=== PATIENT | male | born 1940 | race Caucasian/White ===

== ENCOUNTER → 2016-10-12 | Outpatient (CLI) | payer MEDICARE, BC ==
[~2016-10-12] MED LIST: ALBUTEROL200 PUFFS/ IH; ALDACTONE 25MG25 MG PO; AMIODARONE 200200 MG PO; ASPIRIN 81MG TA81 MG PO; CELEBREX 200MG200 MG PO; COREG25 MG PO; ELAVIL GENERIC25 MG PO; FOLIC ACID 1MG T1 MG PO; HYDROXYZINE50 MG PO; HYOSCYAMINE0.125 M1 PO; LEVAQUIN LEVA-750 MG PO; LEXAPRO 10 MG T10 MG PO; LISINOPRIL 5MG T5 MG PO; METHOTREXATE2.5 MG PO; PRAVASTATIN 40M40 MG PO; PREDNISONE20 MG PO; TAMIFLU 75MG CA75 MG PO; VICODIN 5/500 T1 TAB PO; ZINC SULFATE 2220 MG PO
[2016-10-12 15:07] LABS: HEMOGLOBIN 15.5 g/dL (14.1-18.0); LYMPH # 2.3 K/mm3 (0.7-4.5); LYMPH % 25.3 % (10-50)
--- NOTE | 2016-10-12 15:18 | RADIOLOGY REPORT PS360 ---
CHEST(2 VIEWS-NOT PORTABLE) HISTORY: TOBACCO USE ORDERING PHYSICIAN: Adarsh Chaparro MD PATIENT AGE: 76 years COMPARISON: 06/08/2016 FINDINGS: There has been a prior median sternotomy/CABG. The heart size is normal. AICD device is present in good position. Right hemidiaphragm is elevated with atelectatic or fibrotic changes in both lung bases right somewhat more prominent than left. Upper lobes are clear. There are mild degenerative change is in the thoracic spine. IMPRESSION: 1. No change with no acute finding. 2. Bilateral lower lobe atelectatic/fibrotic change in the 3. Prior CABG with AICD device present
[2016-10-12 16:33] LABS: ABO BLOOD TYPE O; RH BLOOD TYPE POSITIVE
[2016-10-12 16:51] LABS: BUN 16 mg/dL (7-18); URINE BILIRUBIN - DIPSTICK NEGATIVE (NEG); URINE BLOOD NEGATIVE (NEG)
[2016-10-12 16:59] LABS: GFR (ESTIMATED) 82 ML/MIN (>60)
== END ==
LOC: LAB 14:26
PROVIDERS: Family Medicine
DX: E11.9 Type 2 diabetes mellitus without complications (principal); Z01.810 Encounter for preprocedural cardiovascular examination; Z01.811 Encounter for preprocedural respiratory examination; Z01.812 Encounter for preprocedural laboratory examination; Z95.810 Presence of automatic (implantable) cardiac defibrillator; I50.9 Heart failure, unspecified

== ENCOUNTER → 2016-12-03 | Outpatient (CLI) | payer MEDICARE, BC | LOC: LAB 16:21 | DX: S91.302D Unspecified open wound, left foot, subsequent encounter (principal) ==

== ENCOUNTER → 2017-01-16 | Outpatient (CLI) | payer MEDICARE, BC ==
[2017-01-16 08:28] LABS: FASTING URINE GLUCOSE NEGATIVE
[2017-01-16 10:20] LABS: 1 HR URINE GLUCOSE 2+ mg/ml
[2017-01-16 11:06] LABS: 2 HR URINE GLUCOSE 3+ mg/ml
--- NOTE | 2017-01-16 15:53 | RADIOLOGY REPORT PS360 ---
ARTERIAL/DWY-[id number]-PGE ULCER smoker, diabetes, hyperlipidemia, peripheral vascular disease, ulcer on the left foot ORDERING PHYSICIAN: JAMIE SANON PATIENT AGE: 76 years TECHNIQUE: Segmental pressures obtained of both right and left leg. These are compared to brachial blood pressure to yield index at each level sampled including summary BRIANNA. The data sheets from the procedure are available in PACS FINDINGS Rest study only performed today No prior studies available for comparison. Blood pressures reported are in millimeters mercury. RIGHT LEG BRIANNA = 1.3. Brachial BP: 126 Thigh BP: 149 Calf BP: 165 Ankle PT: 161 Ankle DP : 157 Digit =120 LEFT LEG BRIANNA = 1.2 Brachial BPD: 126 Thigh BP: 156 Calf BP: 151 Ankle PT:155 Ankle DP: 144 Digit = 124 Pulses and waveforms: Normal IMPRESSION: The right BRIANNA slightly elevated. Left BRIANNA is upper normal. These findings are consistent with vessel hardening from peripheral vascular disease at may be seen with diabetes. The toe brachial indices are near 1 on both sides.
== END ==
LOC: RT 07:57
PROVIDERS: Family Medicine
DX: L97.522 Non-pressure chronic ulcer of other part of left foot with fat layer exposed (principal)